=== PATIENT | male | born 1960 | race Caucasian/White ===

== ENCOUNTER 2023-07-03 06:50 | Emergency (ER) | payer OTHER, SELFPAY ==
[2023-07-03 06:58] VITALS: BP 166/102
[2023-07-03 09:02] LABS: % Basophils 0.1 % (0-2); % Eosinophils 3.9 % (0-6); % Immature Granulocytes 0.3 % (0-0.5); % Lymphocytes 25.8 % (20.5-51.1); % Monocytes 11.2 % (1.7-9.3); % Neutrophils 58.7 % (42.2-75.2); Absolute Eosinophils 0.3 10^3/uL (0-0.7); Absolute Lymphocytes 1.7 10^3/uL (1.2-3.4); Absolute Monocytes 0.8 10^3/uL (0.1-0.6); Absolute Neutrophils 3.9 10^3/uL (1.4-6.5); Hemoglobin 15.1 g/dL (13.0-18.0); Mean Corp Hgb Conc. 35.1 g/dL (33.0-37.0); Mean Corpuscular Hgb 32.7 pg (27.0-31.0); Mean Corpuscular Volume 93.1 fL (80.0-94.0); Mean Platelet Volume 10.5 fL (7.4-10.4); Nucleated Red Blood Cells % 0 % (-); Platelet Count 131 10^3/uL (130-400); Red Blood Cell Count 4.62 10^6/uL (4.70-6.10); White Blood Cell Count 6.7 10^3/uL (4.8-10.8)
--- NOTE | 2023-07-03 09:10 | ED.GENMED ---
History of Present Illness
General
Chief Complaint: Musculo-Skeletal Complaint
Source: patient and records
Exam Limitations: none
Time Seen by Provider: 07/03/23 08:08
Nursing documentation reviewed up to this point in time: agreed with
Travel History
Have you had any contact with someone who has COVID-19?: No
Do you have any symptoms of coronavirus? Fever > 100 degrees, chills, cough, shortness of breath, sore throat, loss of taste or smell, muscle aches, or headache?: No
History of Present Illness
History of Present Illness:
Patient is a 63-year-old male with a history of DVT on Eliquis who presents to the emergency department complaining of redness, swelling and pain of his right foot and he is also noted over the past few days subjective swelling in his left foot and
lower leg. Patient denies any fever or chills. Patient denies chest pain or shortness of breath. Patient denies any GI or symptoms. Patient does have a history of DVT as well as cellulitis in the right leg. Patient is on Eliquis. Patient
states that when he was playing golf last week he was wearing new shoes and seem to rub on his right foot.
Past History
Past History
ED Past Medical History: HTN and Other (DVT right leg December 2012)
ED Past Surgical History: Appendectomy and Orthopedic
Social History
Tobacco: Non-smoker
Living: with family
Review of Systems
Review of Systems
All Other Systems: ROS reviewed and negative except as documented in HPI and ROS
Constitutional: Reports no symptoms
Respiratory: Reports no symptoms
Cardiac: Reports no symptoms
ABD/GI: Reports no symptoms
: Reports no symptoms
Musculoskeletal: Reports edema
Skin: Reports other (Redness of right foot)
Neurological: Reports no symptoms
Hematologic/Lymphatic: Reports no symptoms
Psychiatric: Reports no symptoms
Phy Exam
Physical Exam
Physical Exam:
Physical Exam
General: No apparent distress, alert and appropriate, obese, well hydrated
HENT: Normocephalic, supple with no lymphadenopathy, no thyromegaly
Eyes: Clear sclera, conjuctiva without injection
Heart: Regular rhythm and rate. No S3, S4. No murmur. No NVD
Lungs: No respiratory distress, no stridor, lung sounds clear and equal bilaterally
Abdomen: Soft, nontender, BS good
Neuro: Alert and oriented x 3, CN II - XII intact, no motor focality, no cerebellar dysfunction
Skin: no rash. Erythema on the dorsum and medial aspect of the right foot accompanying tenderness with mild swelling and brawniness. Bilateral chronic venous stasis skin changes of the lower legs
Psychiatric: well kept. interactive and cooperative
Extremities: No cyanosis. Good and equal peripheral pulses. Bilateral +1-2 pitting edema of the lower legs, ankles and feet
Scores
Heart Failure Risk
Heart Failure Risk Score: Not Applicable
Heart Score for Chest Pain Patients
STEMI patient?: Not applicable
Withdrawal Assessment of Alcohol
Withdrawal Assessment Completed?: Not applicable
Course
Orders/Labs/Results
Orders:
Orders
07/03/23 07:04
Foot, Right 3 View [CR Foot - Right Min 3 Views] Urgent
Comment:
Reason For Exam: pain
07/03/23 08:28
US Periph Venous LOWER Ext Nestor Urgent
Comment:
Reason For Exam: swelling b/l hx of dvt
07/03/23 08:37
Complete Blood Count/With Diff Urgent
Comprehensive Metabolic Panel Urgent
Sed Rate [Erythrocyte Sed Rate] Urgent
Uric Acid Urgent
Abnormal Lab Results
07/03/23
08:37
RBC 4.62 L 10^6/uL
(4.70-6.10)
MCH 32.7 H pg
(27.0-31.0)
MPV 10.5 H fL
(7.4-10.4)
Absolute Monos (auto) 0.8 H 10^3/uL
(0.1-0.6)
Monocytes % 11.2 H %
(1.7-9.3)
Glucose 101 H mg/dl
(70-99)
07/03/23 08:37
07/03/23 08:37
Vital Signs
Initial and Last Documented VS:
Initial Vital Signs
Temp Pulse Resp BP Pulse Ox
98.9 F 98 16 166/102 98
07/03/23 06:58 07/03/23 06:58 07/03/23 06:58 07/03/23 06:58 07/03/23 06:58
Last Documented Vital Signs
Temp Pulse Resp BP Pulse Ox
98.9 F 98 16 166/102 98
07/03/23 06:58 07/03/23 06:58 07/03/23 06:58 07/03/23 06:58 07/03/23 06:58
*Radiology
Radiology exam reviewed: radiology read reviewed (neg)
*Pulse Oximetry
Patient hypoxic: no
*EKG
Interpreted by ED Provider?: NA
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
*Critical Care Note
Total Time (30-74mins, 75-104mins- exclusive of procedures): Not Applicable
Update Note
Update Note:
Patient's workup is unremarkable. Will place the patient on doxycycline and increase the hydrochlorothiazide.
ED Attending Note
-
Portions of this chart may have been created with voice recognition software.� Occasional wrong word or��sound alike� substitutions may have occurred due to the inherent limitations of voice recognition software.
Discharge Plan
Departure
Patient Disposition: Home (Routine Discharge)
Date of Disposition: 07/03/23
Time of Disposition: 10:34
Patient with high blood pressure during this ER visit?: Yes
Condition: Good
Discharge Problem:
Cellulitis of leg, Edema
Instructions: Dependent Edema (DC), Cellulitis (Skin Infection), Adult (DC), BLOOD PRESSURE
Prescriptions:
New
doxycycline monohydrate 100 mg capsule
100 mg PO BID Qty: 20 0RF
hydrochlorothiazide 25 mg tablet
25 mg PO DAILY Qty: 7 0RF
No Action
hydrochlorothiazide 12.5 MG capsule
12.5 mg PO DAILY
azilsartan medoxomil [Edarbi] 40 MG tablet
40 mg PO DAILY
rivaroxaban [Xarelto] 20 MG tablet
20 mg PO DAILY
doxycycline hyclate 100 MG capsule
100 mg PO Q12 Qty: 20 0RF
levofloxacin 500 MG tablet
500 mg PO DAILY Qty: 10 0RF
oxycodone 5 MG tablet
5 mg PO Q4H PRN (Reason: pain) Qty: 20 0RF
Referrals:
Tad Johnson DO [Family Provider] - Follow up in 5-7 days
Activity Restrictions/Additional Instructions:
Continue present medications and add in your prescriptions.
Interventions
Interventions:
*Risk Screen - Suicide Last Done: 07/03/23 06:58
*General Assessment Last Done: 07/03/23 06:58
*Neglect/Abuse Screening Last Done: 07/03/23 07:03
ED-Musculoskeletal Assessment Last Done: 07/03/23 08:44
[2023-07-03 09:11] LABS: Erythrocyte Sed Rate 7 mm/hour (0-20)
[2023-07-03 09:35] LABS: ALT (SGPT) 39 U/L (0-50); AST (SGOT) 40 U/L (17-59); Alkaline Phosphatase 92 U/L (38-126); Blood Urea Nitrogen 17 mg/dl (9-20); Carbon Dioxide 24 mmol/L (22-30); Chloride 103 mmol/L (98-107); Glucose 101 mg/dl (70-99); Sodium 135 mmol/L (135-145); Total Bilirubin 0.7 mg/dl (0.2-1.3); Total Protein 6.5 g/dl (6.3-8.2); Uric Acid 7.1 mg/dl (3.5-8.5); eGFR > 60.00
== END 2023-07-03 11:24 | disposition home or self-care (01) ==
LOC: EMR 06:50
PROVIDERS: EMERGENCY PHYSICIAN Emergency Medicine; FAMILY PHYSICIAN Family Medicine
DX: L03.116 Cellulitis of left lower limb (principal); L03.115 Cellulitis of right lower limb; R60.0 Localized edema; M79.671 Pain in right foot; I10 Essential (primary) hypertension; Z79.01 Long term (current) use of anticoagulants; Z86.718 Personal history of other venous thrombosis and embolism
CPT/HCPCS: 99284; 73630; 80053; 84550; 85025; 85652; 93970

== ENCOUNTER → 2024-12-23 12:57 | Outpatient (REF) | payer OTHER, SELFPAY | LOC: RAD 12:57 | PROVIDERS: ATTENDING PHYSICIAN Family Medicine | DX: S89.91XA Unspecified injury of right lower leg, initial encounter (principal); R60.0 Localized edema; M79.604 Pain in right leg | CPT/HCPCS: 93971 ==

== ENCOUNTER 2024-12-26 11:35 | Emergency (ER) | payer OTHER, SELFPAY ==
[2024-12-26 11:41] VITALS: BP 123/86
[2024-12-26 12:01] LABS: Hematocrit 41.0 % (39.0-52.0); Hemoglobin 14.4 g/dL (13.0-18.0); Mean Corp Hgb Conc. 35.1 g/dL (33.0-37.0); Mean Corpuscular Volume 91.3 fL (80.0-94.0); Nucleated Red Blood Cells % 0 % (-); Platelet Count 172 10^3/uL (130-400); Red Cell Dist. Width 13.0 % (11.5-14.5)
[2024-12-26 12:24] LABS: ALT (SGPT) 36 U/L (0-50); AST (SGOT) 40 U/L (17-59); Albumin 4.6 g/dl (3.5-5.0); Alkaline Phosphatase 87 U/L (38-126); Blood Urea Nitrogen 17 mg/dl (9-20); Calcium 9.9 mg/dl (8.4-10.2); Carbon Dioxide 25 mmol/L (22-30); Chloride 102 mmol/L (98-107); Glucose 101 mg/dl (70-99); Potassium 4.6 mmol/L (3.5-5.1); Sodium 137 mmol/L (135-145); Total Protein 7.4 g/dl (6.3-8.2); eGFR > 60.00
[2024-12-26 13:28] VITALS: BP 109/75
--- NOTE | 2024-12-26 13:32 | ED.GENMED ---
History of Present Illness
General
Chief Complaint: Skin Problem
Source: patient
Time Seen by Provider: 12/26/24 13:00
History of Present Illness
History of Present Illness:
64-year-old male with past medical history of hypertension and previous DVT to the right lower extremity presenting to the ER at the request of his primary care provider for evaluation of continued swelling to the right lower extremity following an
accidental fall a little over 1 week ago resulting in continued pain and swelling to the right lower leg. Patient had an ultrasound done 2 days ago which showed a large hematoma measuring 10 x 5 cm, patient contacted primary care today noting the
swelling seemed a little bit worse and he was having some mild paresthesia to the leg. Patient was referred to the ER with concern for possible compartment syndrome. Of note, patient has attempted some compression socks but states there is too
much compression which causes him pain, notes that he has not been staying off of the leg is much as he should be, has not been using much ice to help with the swelling either. Patient denies any color changes to lower extremity other than some
mild redness to the area where the initial injury occurred. He denies any focal weakness or numbness, no chest pain or shortness of breath. Reports that he continues to take his Xarelto as prescribed.
Past History
Past History
ED Past Medical History: HTN and Other (DVT right leg December 2012)
ED Past Surgical History: Appendectomy and Orthopedic
Social History
Tobacco: Non-smoker
Alcohol: None
Drug: None
Personal: Single
Living: with family
Review of Systems
Review of Systems
All Other Systems: ROS reviewed and negative except as documented in HPI and ROS
Phy Exam
Physical Exam
Physical Exam:
GENERAL: Alert , in no apparent distress
EYE: conjunctiva clear
Head: Normocephalic atraumatic
NECK: Supple,
ENT: mmm.
LUNGS: no acute respiratory distress
NEUROLOGICAL: Alert and oriented
SKIN: Warm and dry, skin intact. Mild venous stasis dermatitis changes noted to the bilateral lower extremities, slightly more erythema to the anterior of the right lower extremity compared to the left. Moderate edema to the right lower extremity
with tenderness directly over the mid to the lower anterior tibia
MUSCULOSKELETAL: well perfused. Palpable as well as dopplerable pedal and tibial pulse bilateral. Cap refill less than 2 seconds. Sensation grossly intact to light touch. Patient is able to range of motion digits and ankle without any
difficulty but does notice pain with plantar and dorsiflexion. Extremity is otherwise warm and well-perfused
PSYCH: Normal and appropriate interaction.
Scores
Heart Failure Risk
Heart Failure Risk Score: Not Applicable
Heart Score for Chest Pain Patients
STEMI patient?: Not applicable
Withdrawal Assessment of Alcohol
Withdrawal Assessment Completed?: Not applicable
Course
Orders/Labs/Results
Orders:
Orders
12/26/24 11:48
Complete Blood Count/With Diff Urgent
Comprehensive Metabolic Panel Urgent
Abnormal Lab Results
12/26/24
11:48
RBC 4.49 L 10^6/uL
(4.70-6.10)
MCH 32.1 H pg
(27.0-31.0)
MPV 10.6 H fL
(7.4-10.4)
Absolute Monos (auto) 1.1 H 10^3/uL
(0.1-0.6)
Monocytes % 11.7 H %
(1.7-9.3)
Glucose 101 H mg/dl
(70-99)
12/26/24 11:48
12/26/24 11:48
Vital Signs
Initial and Last Documented VS:
Initial Vital Signs
Temp Pulse Resp BP Pulse Ox
97.6 F 114 18 123/86 95
12/26/24 11:41 12/26/24 11:41 12/26/24 11:41 12/26/24 11:41 12/26/24 11:41
Last Documented Vital Signs
Temp Pulse Resp BP Pulse Ox
98.2 F 89 16 109/75 98
12/26/24 13:28 12/26/24 13:28 12/26/24 13:28 12/26/24 13:28 12/26/24 13:33
MDM/Problems Addressed
Differential Diagnosis Includes:
Hematoma
Contusion
Compartment syndrome considered however patient extremity appears hemodynamically intact making suspicion for compartment syndrome much less likely
Cellulitis however there are no breaks in the skin
Venous stasis
Peripheral vascular disease
Peripheral arterial disease
MDM/Problems Addressed:
64-year-old male presenting the ER for evaluation at the request of primary care provider after he excellently fell while walking up a set of stairs last week, known hematoma to the right lower extremity while on anticoagulants. Was negative for
DVT on ultrasound 2 days ago. Given negative ultrasound combined with known hematoma my suspicion is that patient likely has a slowly healing hematoma causing his pain. At present time no symptoms to suggest compartment syndrome but did discuss
with patient to look for to return to the emergency department. We placed an Paresh wrap over the affected area as well as ice pack and advised the patient to try and stay off of his legs is much as possible to keep them elevated. Stable for
discharge home
*Pulse Oximetry
SaO2: 98
Oxygen Mode of Delivery: Room air
Patient hypoxic: no
*Critical Care Note
Total Time (30-74mins, 75-104mins- exclusive of procedures): Not Applicable
Data Reviewed
Review of Other/Old Records Reveals: Radiology Studies
Patient Management
Discussion with other providers: PCP
Escalation/DeEscalation of care consider admission/obs:
Notified patient's primary care provider via [employer] text about workup in the ER. They are in agreement with this plan will follow-up with the patient.
ED Attending Note
-
Portions of this chart may have been created with voice recognition software.� Occasional wrong word or��sound alike� substitutions may have occurred due to the inherent limitations of voice recognition software.
Discharge Plan
Departure
Patient Disposition: Home (Routine Discharge)
Date of Disposition: 12/26/24
Time of Disposition: 13:32
Patient with high blood pressure during this ER visit?: No
Discharge Problem:
Hematoma of right lower extremity
Instructions: Hematoma
Prescriptions:
New
oxycodone-acetaminophen [Percocet] 5-325 mg tablet
1 tab PO Q6HPRN PRN (Reason: pain) Qty: 10 0RF
oxycodone-acetaminophen [Percocet] 5-325 mg tablet
1 tab PO Q6HPRN PRN (Reason: pain) Qty: 8 0RF
No Action
hydrochlorothiazide 12.5 MG capsule
12.5 mg PO DAILY
azilsartan medoxomil [Edarbi] 40 MG tablet
40 mg PO DAILY
rivaroxaban [Xarelto] 20 MG tablet
20 mg PO DAILY
doxycycline hyclate 100 MG capsule
100 mg PO Q12 Qty: 20 0RF
levofloxacin 500 MG tablet
500 mg PO DAILY Qty: 10 0RF
oxycodone 5 MG tablet
5 mg PO Q4H PRN (Reason: pain) Qty: 20 0RF
doxycycline monohydrate 100 mg capsule
100 mg PO BID Qty: 20 0RF
hydrochlorothiazide 25 mg tablet
25 mg PO DAILY Qty: 7 0RF
Interventions
Interventions:
*Risk Screen - Suicide Last Done: 12/26/24 11:41
*General Assessment Last Done: 12/26/24 11:41
*Neglect/Abuse Screening Last Done: 12/26/24 11:41
*Nursing Disposition Last Done: 12/26/24 13:50
Discharge Date and Time
Print Language: MACANESE
== END 2024-12-26 13:50 | disposition home or self-care (01) ==
LOC: EMR 11:35
PROVIDERS: Emergency Medicine; EMERGENCY PHYSICIAN Emergency Medicine; FAMILY PHYSICIAN Family Medicine
DX: S80.11XA Contusion of right lower leg, initial encounter (principal); W10.9XXA Fall (on) (from) unspecified stairs and steps, initial encounter; I10 Essential (primary) hypertension; Z86.718 Personal history of other venous thrombosis and embolism
CPT/HCPCS: 99283; 80053; 85025